=== PATIENT | male | born 1945 | race Caucasian/White ===

== ENCOUNTER 2022-08-03 12:39 | Inpatient (IN) | payer OTHER, MEDICARE ==
[2022-08-03 13:34] VITALS: BMI 22.1
[2022-08-03] MEDS ORDERED: NALOXONE HCL (KLOXXADO) 8 MG SPRAY NS PRN (14:30)
[2022-08-03] MEDS ORDERED: ACETAMINOPHEN 325 MG TABLET (FP) PO PRN (14:30)
[2022-08-03] MEDS ORDERED: LORazepam 1 MG TABLET PO PRN (14:30)
[2022-08-03] MEDS ORDERED: MAGNESIUM HYDROX 2400MG/30ML ORAL SUSPENSION 30 ML CUP PO PRN (14:30)
[2022-08-03] MEDS ORDERED: BENZOCAINE/MENTHOL (CHLORASEPTIC ) LOZENGE MM PRN (14:30)
[2022-08-03] MEDS ORDERED: DICYCLOMINE HCL 10 MG CAPSULE PO PRN (14:30)
[2022-08-03] MEDS ORDERED: LOPERAMIDE HCL 2 MG CAPSULE PO PRN (14:30)
[2022-08-03] MEDS ORDERED: ONDANSETRON *ODT* 4 MG TABLET SL PRN (14:30)
[2022-08-03] MEDS ORDERED: POLYETHYLENE GLYCOL (HEALTHYLAX) 3350 17 GM PACKET PO PRN (14:30)
[2022-08-03] MEDS ORDERED: MAG HYDROX/AL HYDROX/SIMETH 30 ML UNIT-DOSE CUP PO PRN (14:30)
[2022-08-03] MEDS ORDERED: LIDOCAINE 5% TOPICAL PATCH TP PRN (14:34)
[2022-08-03] MEDS: LIDOCAINE PATCH REMOVAL MC SCH (22:40)
[2022-08-03] MEDS: THIAMINE HCL 100 MG TABLET (FP) PO SCH (22:42)
[2022-08-03] MEDS: APIXABAN 5 MG TABLET PO SCH (22:42)
[2022-08-03] MEDS: MELATONIN 5 MG TABLETS PO SCH (22:42)
[2022-08-03] MEDS: LORazepam 2 MG TABLET PO SCH (22:43)
[2022-08-04] MEDS: LORazepam 2 MG TABLET PO SCH ×4 (05:57→22:16)
[2022-08-04] MEDS ORDERED: TAMSULOSIN HCL 0.4 MG CAP PO SCH (10:00)
[2022-08-04] MEDS: CHOLECALCIFEROL (VIT D3) 1,000 UNIT (25 MCG) TABLET PO SCH (10:32)
[2022-08-04] MEDS: PRENATAL VITAMINS W/ FOLIC ACID TABLET (FP) PO SCH (10:32)
[2022-08-04] MEDS: APIXABAN 5 MG TABLET PO SCH ×2 (10:33→22:14)
[2022-08-04] MEDS: THIAMINE HCL 100 MG TABLET (FP) PO SCH (22:14)
[2022-08-04] MEDS: MELATONIN 5 MG TABLETS PO SCH (22:14)
[2022-08-04] MEDS: MIRTAZAPINE 15 MG TABLET (FP) PO SCH (22:15)
[2022-08-04] MEDS: LIDOCAINE PATCH REMOVAL MC SCH (22:15)
[2022-08-05] MEDS: LORazepam 1 MG TABLET PO SCH ×4 (05:55→22:53)
[2022-08-05] MEDS: ESCITALOPRAM OXALATE 10 MG TABLET PO SCH (10:42)
[2022-08-05] MEDS: PRENATAL VITAMINS W/ FOLIC ACID TABLET (FP) PO SCH (10:42)
[2022-08-05] MEDS: APIXABAN 5 MG TABLET PO SCH ×2 (10:42→22:53)
[2022-08-05] MEDS: ACETAMINOPHEN 325 MG TABLET (FP) PO PRN (12:10)
[2022-08-05] MEDS: CHOLECALCIFEROL (VIT D3) 1,000 UNIT (25 MCG) TABLET PO SCH (12:11)
[2022-08-05 12:16] LABS: HEMATOCRIT 30.4 % (35.4-49); MCH 28.4 pg (25.7-33.7); MEAN CELL VOLUME 85.9 fl (80-96); MEAN PLT VOLUME 8.1 fl (7.5-11.1); PLATELET COUNT 516 10^3/uL (134-434); RBC 3.53 M/mm3 (4.00-5.60); RDW 16.4 % (11.9-15.9); WHITE BLOOD COUNT 7.1 K/mm3 (4.0-10.0)
[2022-08-05 12:56] LABS: BLOOD UREA NITROGEN 13.6 mg/dL (7-18); CALCIUM 8.5 mg/dL (8.5-10.1)
[2022-08-05 12:58] LABS: CREATININE 0.7 mg/dL (0.55-1.3)
[2022-08-05 13:00] LABS: BILIRUBIN,TOTAL 0.6 mg/dL (0.2-1); TOT PROT 6.4 g/dl (6.4-8.2)
[2022-08-05] MEDS: MELATONIN 5 MG TABLETS PO SCH (22:53)
[2022-08-05] MEDS: TAMSULOSIN HCL 0.4 MG CAP PO SCH (22:53)
[2022-08-05] MEDS: THIAMINE HCL 100 MG TABLET (FP) PO SCH (22:54)
[2022-08-05] MEDS: LIDOCAINE PATCH REMOVAL MC SCH (22:54)
[2022-08-05] MEDS: MIRTAZAPINE 15 MG TABLET (FP) PO SCH (22:54)
[2022-08-06] MEDS ORDERED: LORazepam 0.5 MG TABLET PO PRN
[2022-08-06] MEDS: LORazepam 0.5 MG TABLET PO SCH ×4 (06:13→22:57)
[2022-08-06] MEDS: CHOLECALCIFEROL (VIT D3) 1,000 UNIT (25 MCG) TABLET PO SCH (10:41)
[2022-08-06] MEDS: PRENATAL VITAMINS W/ FOLIC ACID TABLET (FP) PO SCH (10:41)
[2022-08-06] MEDS: ESCITALOPRAM OXALATE 10 MG TABLET PO SCH (10:41)
[2022-08-06] MEDS: APIXABAN 5 MG TABLET PO SCH ×2 (10:41→23:03)
[2022-08-06] MEDS: ACETAMINOPHEN 325 MG TABLET (FP) PO PRN (14:09)
[2022-08-06] MEDS: LIDOCAINE PATCH REMOVAL MC SCH (22:31)
[2022-08-06] MEDS: THIAMINE HCL 100 MG TABLET (FP) PO SCH (23:03)
[2022-08-06] MEDS: MELATONIN 5 MG TABLETS PO SCH (23:03)
[2022-08-06] MEDS: TAMSULOSIN HCL 0.4 MG CAP PO SCH (23:03)
[2022-08-06] MEDS: MIRTAZAPINE 15 MG TABLET (FP) PO SCH (23:03)
[2022-08-07] MEDS ORDERED: LORazepam 0.5 MG TABLET PO ONE (05:00)
[2022-08-07 09:15] VITALS: PULSE 40
[2022-08-07 09:52] VITALS: BP 140/87; RESP 18; TEMP 97.3
[2022-08-07] MEDS: CHOLECALCIFEROL (VIT D3) 1,000 UNIT (25 MCG) TABLET PO SCH (10:02)
[2022-08-07] MEDS: APIXABAN 5 MG TABLET PO SCH (10:03)
[2022-08-07] MEDS: PRENATAL VITAMINS W/ FOLIC ACID TABLET (FP) PO SCH (10:03)
[2022-08-07] MEDS: ESCITALOPRAM OXALATE 10 MG TABLET PO SCH (10:03)
== END 2022-08-07 13:08 | disposition home or self-care (01) | DRG 897 ==
LOC: YASAS 12:39 → Y3N 15:21
PROVIDERS: ADMIT Allergy & Immunology; ATTEND Surgery
PROC: HZ2ZZZZ Detoxification Services for Substance Abuse Treatment (ICD-10-PCS; principal; 2022-08-03)
DX: F10.230 Alcohol dependence with withdrawal, uncomplicated (principal); F10.282 Alcohol dependence with alcohol-induced sleep disorder; F32.A Depression, unspecified; I48.91 Unspecified atrial fibrillation; I49.3 Ventricular premature depolarization; K21.9 Gastro-esophageal reflux disease without esophagitis; M25.512 Pain in left shoulder; N40.1 Benign prostatic hyperplasia with lower urinary tract symptoms; R30.0 Dysuria; Z96.643 Presence of artificial hip joint, bilateral; R26.89 Other abnormalities of gait and mobility; Z87.891 Personal history of nicotine dependence; Z99.89 Dependence on other enabling machines and devices; Z85.01 Personal history of malignant neoplasm of esophagus; Z91.018 Allergy to other foods
CPT/HCPCS: 36415; 80053; 82140; 85027; 86780; 87811; 93005; 93010; C9803-CS; U0003; U0005